=== PATIENT | female | born 1975 | race Caucasian/White ===

== ENCOUNTER 2017-05-31 16:22 | Emergency (ER) | payer BC, MEDICAID, SELFPAY ==
[~2017-05-31] VITALS: Ht 157.5 cm; Wt 61.8 kg
[~2017-05-31 16:22] MED LIST: LITH600 PO; OLAN10TA3 PO
[2017-05-31] MEDS ORDERED: OLAN10TA6 PO (17:02)
[2017-05-31] MEDS ORDERED: DIPH25 PO (17:02)
[2017-05-31 19:31] LABS: BASOPHILS % (AUTO) 0.4 % (0.0-2.0); EOSINOPHILS % (AUTO) 1.1 % (1.0-6.0); HEMATOCRIT 34.6 % (36-46); LYMPHOCYTES # (AUTO) 1.6 K/uL (1.0-4.8); LYMPHOCYTES % (AUTO) 16.6 % (22.0-44.0); MEAN CORPUSCULAR HEMOGLOBIN 30.5 pg (26.0-34.0); MEAN CORPUSCULAR HGB CONC 34.6 G/dL (31.0-37.0); MEAN CORPUSCULAR VOLUME 88 fL (80-100); MONOCYTES # (AUTO) 0.6 K/uL (0.1-1.0); MONOCYTES % (AUTO) 6.7 % (2.0-9.0); NEUTROPHILS # (AUTO) 7.3 K/uL (1.8-7.7); NEUTROPHILS % (AUTO) 75.2 % (40.0-70.0); PLATELET COUNT (AUTO) 398 K/uL (150-450); RED BLOOD CELL COUNT(AUTO) 3.93 MIL/uL (4.00-5.20); RED CELL DISTRIBUTION WIDTH 12.4 % (11.5-14.5)
[2017-05-31 19:49] LABS: LITHIUM 1.48 mmol/L (0.60-1.20)
[2017-05-31 19:51] LABS: ANION GAP 8 mmol/L (8-16); CALCIUM, TOTAL 10.1 mg/dL (8.8-10.5); CARBON DIOXIDE 25 mmol/L (22-29); CHLORIDE 104 mmol/L (98-107); CREATININE 0.86 mg/dL (0.60-1.30); GLOMERULAR FILTR. RATE CALC > 60 mL/min (>60); GLUCOSE,RANDOM 107 mg/dL (70-110); POTASSIUM 3.8 mmol/L (3.5-5.1); SODIUM SERUM 137 mmol/L (136-145); UREA NITROGEN, BLOOD 9 mg/dL (7-18)
[2017-05-31 19:55] LABS: ALANINE AMINOTRANSFERASE 34 U/L (12-78); ALBUMIN 4.2 g/dL (3.4-5.0); ALKALINE PHOSPHATASE 72 U/L (46-116); ASPARTATE AMINOTRANSFERASE 18 U/L (15-37); BILIRUBIN,TOTAL 0.3 mg/dL (0.1-1.0); TOTAL PROTEIN, SERUM 7.6 g/dL (6.4-8.2)
[2017-05-31] MEDS ORDERED: LORazepam 1 MG TABLET PO ONE (20:30)
[2017-05-31] MEDS ORDERED: DiphenhydrAMINE HCL 25 MG CAPSULE PO ONE (20:30)
[2017-05-31] MEDS ORDERED: HALOPERIDOL 5 MG TABLET PO ONE (20:30)
[2017-05-31 20:35] VITALS: BP 135/87
[2017-06-01 06:28] LABS: AMPHET/METH SCREEN,URINE NEGATIVE (NEGATIVE); BARBITURATE SCREEN, URINE NEGATIVE (NEGATIVE); BENZODIAZEPINES SCREEN,URINE NEGATIVE (NEGATIVE); CANNABINOID SCREEN,URINE NEGATIVE (NEGATIVE); COCAINE SCREEN,URINE NEGATIVE (NEGATIVE); METHADONE SCREEN, URINE NEGATIVE (NEGATIVE); OPIATE SCREEN,URINE NEGATIVE (NEGATIVE)
[2017-06-01 06:49] LABS: PHENCYCLIDINE SCREEN,URINE NEGATIVE (NEGATIVE)
[2017-06-04] MEDS ORDERED: BRIM5DRO11 OD (14:55)
[2017-06-04] MEDS ORDERED: PILO1OS OP (14:56)
[2017-06-04] MEDS ORDERED: [UNRECOGNIZED DRUG - CODE] OD (14:57)
[2017-06-04] MEDS ORDERED: OLAN10TA20 PO (14:58)
[2017-06-04] MEDS ORDERED: LITH300T4 PO (14:58)
== END 2017-05-31 20:43 | disposition home or self-care (01) ==
LOC: EMS 16:23
DX: F31.9 Bipolar disorder, unspecified (principal)
CPT/HCPCS: 36415; 80053; 80178; 80307; 84703; 85025; 99284; G0480

== ENCOUNTER 2017-06-12 11:22 | Inpatient (IN) | payer BC, MEDICAID ==
[~2017-06-12] VITALS: Ht 157.5 cm; Wt 63.5 kg
[~2017-06-12 11:22] MED LIST changes: +BRIM5DRO11 OD; +LITH300T4 PO; -LITH600 PO; +OLAN10TA20 PO; -OLAN10TA3 PO; +PILO1OS OP; +[UNRECOGNIZED DRUG - CODE] OD
[2017-06-12] MEDS ORDERED: FERR-89 PO (11:30)
[2017-06-12] MEDS ORDERED: ATOR10TA84 PO (11:30)
[2017-06-12 11:52] LABS: BASOPHILS % (AUTO) 0.4 % (0.0-2.0); EOSINOPHILS % (AUTO) 0.8 % (1.0-6.0); HEMATOCRIT 35.2 % (36-46); HEMOGLOBIN 12.4 g/dL (12.0-16.0); LYMPHOCYTES # (AUTO) 1.6 K/uL (1.0-4.8); LYMPHOCYTES % (AUTO) 18.1 % (22.0-44.0); MEAN CORPUSCULAR HEMOGLOBIN 30.8 pg (26.0-34.0); MEAN CORPUSCULAR HGB CONC 35.2 G/dL (31.0-37.0); MEAN CORPUSCULAR VOLUME 87 fL (80-100); MONOCYTES # (AUTO) 0.5 K/uL (0.1-1.0); MONOCYTES % (AUTO) 5.3 % (2.0-9.0); NEUTROPHILS # (AUTO) 6.5 K/uL (1.8-7.7); NEUTROPHILS % (AUTO) 75.4 % (40.0-70.0); PLATELET COUNT (AUTO) 356 K/uL (150-450); RED BLOOD CELL COUNT(AUTO) 4.03 MIL/uL (4.00-5.20); RED CELL DISTRIBUTION WIDTH 12.4 % (11.5-14.5)
[2017-06-12 11:57] LABS: ANION GAP 9 mmol/L (8-16); CALCIUM, TOTAL 9.3 mg/dL (8.8-10.5); CARBON DIOXIDE 24 mmol/L (22-29); CHLORIDE 103 mmol/L (98-107); CREATININE 0.68 mg/dL (0.60-1.30); GLOMERULAR FILTR. RATE CALC > 60 mL/min (>60); GLUCOSE,RANDOM 146 mg/dL (70-110); POTASSIUM 3.5 mmol/L (3.5-5.1); SODIUM SERUM 136 mmol/L (136-145); UREA NITROGEN, BLOOD 9 mg/dL (7-18)
[2017-06-12 12:03] LABS: ALANINE AMINOTRANSFERASE 66 U/L (12-78); ALKALINE PHOSPHATASE 81 U/L (46-116); ASPARTATE AMINOTRANSFERASE 35 U/L (15-37); BILIRUBIN,TOTAL 0.2 mg/dL (0.1-1.0); TOTAL PROTEIN, SERUM 7.2 g/dL (6.4-8.2)
[2017-06-12 12:31] LABS: BILIRUBIN,URINE NEGATIVE (NEGATIVE); GLUCOSE, URINE (UA) NEGATIVE (NEGATIVE); KETONES,URINE NEGATIVE (NEGATIVE); LEUKOCYTE ESTERASE ,URINE MODERATE (NEGATIVE); NITRATE,URINE NEGATIVE (NEGATIVE); OCCULT BLOOD,URINE NEGATIVE (NEGATIVE); PROTEIN,URINE NEGATIVE (NEGATIVE); UROBILINOGEN,URINE 0.2 mg/dL (<=1.0)
[2017-06-12 12:37] LABS: APPEARANCE,URINE HAZY (CLEAR); BACTERIA,URINE None Seen /HPF (None Seen); RBC,URINE 0-2 /HPF (0-2); SQUAMOUS EPITHELIAL CELL,UR Few /LPF (None Seen)
[2017-06-12] MEDS ORDERED: OLANZapine 5 MG TABLET PO ONE (13:15)
[2017-06-12] MEDS ORDERED: LORazepam 1 MG TABLET PO ONE (13:15)
[2017-06-12 14:05] LABS: AMPHET/METH SCREEN,URINE NEGATIVE (NEGATIVE); BARBITURATE SCREEN, URINE NEGATIVE (NEGATIVE); BENZODIAZEPINES SCREEN,URINE NEGATIVE (NEGATIVE); CANNABINOID SCREEN,URINE NEGATIVE (NEGATIVE); COCAINE SCREEN,URINE NEGATIVE (NEGATIVE); METHADONE SCREEN, URINE NEGATIVE (NEGATIVE); OPIATE SCREEN,URINE NEGATIVE (NEGATIVE)
[2017-06-12 14:06] LABS: PHENCYCLIDINE SCREEN,URINE NEGATIVE (NEGATIVE)
[2017-06-12] MEDS: LITHIUM CARBONATE 300 MG CAPSULE PO SCH (16:34)
[2017-06-12 16:54] VITALS: BP 128/79
[2017-06-12] MEDS: OLANZapine 10 MG TABLET PO SCH (20:17)
[2017-06-12] MEDS: ZOLPIDEM TARTRATE 10 MG TABLET PO PRN (20:30)
[2017-06-13 03:34] VITALS: BP 105/65
[2017-06-13] MEDS: FERROUS SULFATE 325 MG EC TABLET PO SCH ×2 (06:36→17:13)
[2017-06-13 08:00] VITALS: BP 158/94
[2017-06-13] MEDS: ATORVASTATIN CALCIUM 10 MG TABLET PO SCH (08:41)
[2017-06-13] MEDS: LITHIUM CARBONATE 300 MG CAPSULE PO SCH ×2 (08:41→17:14)
[2017-06-13] MEDS: PrednisoLONE ACETATE 1% 5 ML OPHTHALMIC SUSPENSION OD SCH ×2 (08:57→17:15)
[2017-06-13] MEDS: PILOCARPINE HCL 1% 15 ML OPHTHALMIC SOLUTION OD SCH ×2 (08:57→17:38)
[2017-06-13] MEDS: BRIMONIDINE TARTRATE 0.2% 5 ML OPHTHALMIC SOLUTION OD SCH ×3 (08:57→17:22)
[2017-06-13] MEDS: HALOPERIDOL 5 MG TABLET PO PRN (12:29)
[2017-06-13] MEDS: LORazepam 2 MG TABLET PO PRN ×2 (12:29→22:10)
[2017-06-13] MEDS ORDERED: ACETAMINOPHEN 325 MG TABLET PO PRN (16:00)
[2017-06-13] MEDS ORDERED: IBUPROFEN 400 MG TABLET PO PRN (16:00)
[2017-06-13 17:00] VITALS: BP 110/92
[2017-06-13] MEDS: OLANZapine 10 MG TABLET PO SCH (20:39)
[2017-06-13] MEDS: ZOLPIDEM TARTRATE 10 MG TABLET PO PRN (22:10)
[2017-06-14 01:27] VITALS: BP 105/72
[2017-06-14] MEDS: FERROUS SULFATE 325 MG EC TABLET PO SCH ×2 (07:03→19:10)
[2017-06-14 08:00] VITALS: BP 120/90
[2017-06-14] MEDS: PILOCARPINE HCL 1% 15 ML OPHTHALMIC SOLUTION OD SCH ×2 (09:24→16:13)
[2017-06-14] MEDS: BRIMONIDINE TARTRATE 0.2% 5 ML OPHTHALMIC SOLUTION OD SCH ×3 (09:24→16:14)
[2017-06-14] MEDS: PrednisoLONE ACETATE 1% 5 ML OPHTHALMIC SUSPENSION OD SCH ×2 (09:24→16:13)
[2017-06-14] MEDS: LITHIUM CARBONATE 300 MG CAPSULE PO SCH ×2 (09:25→16:15)
[2017-06-14] MEDS: ATORVASTATIN CALCIUM 10 MG TABLET PO SCH (09:25)
[2017-06-14] MEDS: LORazepam 2 MG TABLET PO PRN ×2 (13:16→20:16)
[2017-06-14] MEDS: HALOPERIDOL 5 MG TABLET PO PRN (16:15)
[2017-06-14] MEDS: OLANZapine 10 MG TABLET PO SCH (20:15)
[2017-06-14 20:16] VITALS: BP 127/79
[2017-06-14] MEDS: ZOLPIDEM TARTRATE 10 MG TABLET PO PRN (22:05)
[2017-06-15 01:30] VITALS: BP 122/84
[2017-06-15] MEDS: FERROUS SULFATE 325 MG EC TABLET PO SCH ×2 (06:35→16:35)
[2017-06-15] MEDS: LITHIUM CARBONATE 300 MG CAPSULE PO SCH ×2 (08:45→16:35)
[2017-06-15] MEDS: PILOCARPINE HCL 1% 15 ML OPHTHALMIC SOLUTION OD SCH ×2 (08:47→16:36)
[2017-06-15] MEDS: PrednisoLONE ACETATE 1% 5 ML OPHTHALMIC SUSPENSION OD SCH ×2 (08:48→17:14)
[2017-06-15] MEDS: BRIMONIDINE TARTRATE 0.2% 5 ML OPHTHALMIC SOLUTION OD SCH ×3 (08:48→17:06)
[2017-06-15] MEDS: ATORVASTATIN CALCIUM 10 MG TABLET PO SCH (08:49)
[2017-06-15 09:58] VITALS: BP 139/89
[2017-06-15] MEDS: LORazepam 2 MG TABLET PO PRN (13:28)
[2017-06-15] MEDS: HALOPERIDOL 5 MG TABLET PO PRN (16:39)
[2017-06-15 17:07] VITALS: BP 133/84
[2017-06-15] MEDS: OLANZapine 10 MG TABLET PO SCH (20:56)
[2017-06-16 05:16] VITALS: BP 133/94
[2017-06-16] MEDS: FERROUS SULFATE 325 MG EC TABLET PO SCH ×2 (06:57→18:18)
[2017-06-16 08:00] VITALS: BP 125/87
[2017-06-16] MEDS: ATORVASTATIN CALCIUM 10 MG TABLET PO SCH (08:18)
[2017-06-16] MEDS: LITHIUM CARBONATE 300 MG CAPSULE PO SCH ×2 (08:18→17:14)
[2017-06-16] MEDS: LORazepam 2 MG TABLET PO PRN ×2 (08:20→17:16)
[2017-06-16] MEDS: BRIMONIDINE TARTRATE 0.2% 5 ML OPHTHALMIC SOLUTION OD SCH ×3 (08:21→17:18)
[2017-06-16] MEDS: PrednisoLONE ACETATE 1% 5 ML OPHTHALMIC SUSPENSION OD SCH ×2 (08:21→17:19)
[2017-06-16] MEDS: PILOCARPINE HCL 1% 15 ML OPHTHALMIC SOLUTION OD SCH ×2 (08:21→17:17)
[2017-06-16 16:00] VITALS: BP 131/93
[2017-06-16] MEDS: HALOPERIDOL 5 MG TABLET PO PRN (17:16)
[2017-06-16] MEDS: OLANZapine 10 MG TABLET PO SCH (20:15)
[2017-06-17 01:03] VITALS: BP 112/68
[2017-06-17] MEDS: FERROUS SULFATE 325 MG EC TABLET PO SCH ×2 (07:06→16:54)
[2017-06-17 08:11] VITALS: BP 123/86
[2017-06-17] MEDS: PrednisoLONE ACETATE 1% 5 ML OPHTHALMIC SUSPENSION OD SCH ×2 (09:00→16:54)
[2017-06-17] MEDS: PILOCARPINE HCL 1% 15 ML OPHTHALMIC SOLUTION OD SCH ×2 (09:00→16:54)
[2017-06-17] MEDS: BRIMONIDINE TARTRATE 0.2% 5 ML OPHTHALMIC SOLUTION OD SCH ×3 (09:00→16:54)
[2017-06-17] MEDS: LITHIUM CARBONATE 300 MG CAPSULE PO SCH ×2 (09:16→16:54)
[2017-06-17] MEDS: ATORVASTATIN CALCIUM 10 MG TABLET PO SCH (09:19)
[2017-06-17] MEDS: LORazepam 2 MG TABLET PO PRN (09:19)
[2017-06-17 16:07] VITALS: BP 144/75
[2017-06-17] MEDS: ZOLPIDEM TARTRATE 10 MG TABLET PO PRN (20:17)
[2017-06-17] MEDS: OLANZapine 10 MG TABLET PO SCH (20:18)
[2017-06-18 05:37] VITALS: BP 120/70
[2017-06-18] MEDS: FERROUS SULFATE 325 MG EC TABLET PO SCH ×2 (06:34→16:06)
[2017-06-18] MEDS: ATORVASTATIN CALCIUM 10 MG TABLET PO SCH (08:08)
[2017-06-18] MEDS: LITHIUM CARBONATE 300 MG CAPSULE PO SCH ×2 (08:08→17:02)
[2017-06-18] MEDS: PrednisoLONE ACETATE 1% 5 ML OPHTHALMIC SUSPENSION OD SCH ×2 (08:08→16:09)
[2017-06-18] MEDS: PILOCARPINE HCL 1% 15 ML OPHTHALMIC SOLUTION OD SCH ×2 (08:09→16:09)
[2017-06-18] MEDS: BRIMONIDINE TARTRATE 0.2% 5 ML OPHTHALMIC SOLUTION OD SCH ×3 (08:09→16:09)
[2017-06-18] MEDS: HALOPERIDOL 5 MG TABLET PO PRN ×2 (08:10→17:02)
[2017-06-18 08:15] VITALS: BP 139/71
[2017-06-18] MEDS: LORazepam 2 MG TABLET PO PRN ×2 (08:32→16:06)
[2017-06-18 16:30] VITALS: BP 123/78
[2017-06-18] MEDS: OLANZapine 10 MG TABLET PO SCH (20:16)
[2017-06-19 01:45] VITALS: BP 117/85
[2017-06-19] MEDS: FERROUS SULFATE 325 MG EC TABLET PO SCH ×2 (06:35→17:28)
[2017-06-19] MEDS: BRIMONIDINE TARTRATE 0.2% 5 ML OPHTHALMIC SOLUTION OD SCH ×3 (08:08→17:27)
[2017-06-19] MEDS: PrednisoLONE ACETATE 1% 5 ML OPHTHALMIC SUSPENSION OD SCH ×2 (08:08→17:27)
[2017-06-19] MEDS: ATORVASTATIN CALCIUM 10 MG TABLET PO SCH (08:09)
[2017-06-19] MEDS: PILOCARPINE HCL 1% 15 ML OPHTHALMIC SOLUTION OD SCH ×2 (08:09→17:27)
[2017-06-19] MEDS: LITHIUM CARBONATE 300 MG CAPSULE PO SCH ×2 (08:09→17:28)
[2017-06-19] MEDS: HALOPERIDOL 5 MG TABLET PO PRN ×2 (08:09→17:28)
[2017-06-19 08:18] VITALS: BP 143/81
[2017-06-19] MEDS: LORazepam 2 MG TABLET PO PRN ×2 (12:46→21:07)
[2017-06-19 16:28] VITALS: BP 126/72
[2017-06-19] MEDS: OLANZapine 10 MG TABLET PO SCH (21:07)
[2017-06-19] MEDS: ZOLPIDEM TARTRATE 10 MG TABLET PO PRN (21:07)
[2017-06-20 05:12] VITALS: BP 121/86
[2017-06-20] MEDS: FERROUS SULFATE 325 MG EC TABLET PO SCH (06:25)
[2017-06-20] MEDS: BRIMONIDINE TARTRATE 0.2% 5 ML OPHTHALMIC SOLUTION OD SCH ×2 (08:13→12:29)
[2017-06-20] MEDS: PrednisoLONE ACETATE 1% 5 ML OPHTHALMIC SUSPENSION OD SCH (08:13)
[2017-06-20] MEDS: PILOCARPINE HCL 1% 15 ML OPHTHALMIC SOLUTION OD SCH (08:13)
[2017-06-20] MEDS: LITHIUM CARBONATE 300 MG CAPSULE PO SCH (08:13)
[2017-06-20] MEDS: ATORVASTATIN CALCIUM 10 MG TABLET PO SCH (08:14)
[2017-06-20] MEDS: HALOPERIDOL 5 MG TABLET PO PRN (08:16)
[2017-06-20 08:21] VITALS: BP 122/71
[2017-06-20] MEDS ORDERED: LITH300C3 PO (09:42)
[2017-06-20] MEDS: LORazepam 2 MG TABLET PO PRN (10:01)
== END 2017-06-20 16:06 | disposition home or self-care (01) | DRG 885 ==
LOC: EMS 11:26 → 3EI 14:40 → B3A 06-17 00:23
PROVIDERS: ADMIT Psychiatry & Neurology Child & Adolescent Psychiatry; ATTEND Psychiatry & Neurology Child & Adolescent Psychiatry
DX: F20.0 Paranoid schizophrenia (principal); D64.9 Anemia, unspecified; E78.5 Hyperlipidemia, unspecified; G47.00 Insomnia, unspecified; I10 Essential (primary) hypertension; M54.5 Low back pain; R73.9 Hyperglycemia, unspecified; Z79.899 Other long term (current) drug therapy
CPT/HCPCS: 83036; 87081; 99285; G0480

== ENCOUNTER 2017-06-24 23:34 | Inpatient (IN) | payer BC, MEDICAID ==
[~2017-06-24] VITALS: Ht 157.5 cm; Wt 62.6 kg
[~2017-06-24 23:34] MED LIST changes: +ATOR10TA84 PO; +FERR-89 PO; +LITH300C3 PO; -LITH300T4 PO
[2017-06-25 01:06] LABS: BASOPHILS % (AUTO) 0.3 % (0.0-2.0); EOSINOPHILS % (AUTO) 1.5 % (1.0-6.0); HEMOGLOBIN 12.8 g/dL (12.0-16.0); LYMPHOCYTES # (AUTO) 2.5 K/uL (1.0-4.8); LYMPHOCYTES % (AUTO) 21.5 % (22.0-44.0); MEAN CORPUSCULAR HEMOGLOBIN 30.2 pg (26.0-34.0); MEAN CORPUSCULAR HGB CONC 34.8 G/dL (31.0-37.0); MEAN CORPUSCULAR VOLUME 87 fL (80-100); MONOCYTES # (AUTO) 0.9 K/uL (0.1-1.0); MONOCYTES % (AUTO) 7.8 % (2.0-9.0); NEUTROPHILS % (AUTO) 68.9 % (40.0-70.0); PLATELET COUNT (AUTO) 407 K/uL (150-450); RED BLOOD CELL COUNT(AUTO) 4.25 MIL/uL (4.00-5.20); RED CELL DISTRIBUTION WIDTH 12.4 % (11.5-14.5)
[2017-06-25 01:24] LABS: LITHIUM 0.93 mmol/L (0.60-1.20)
[2017-06-25 01:44] LABS: AMPHET/METH SCREEN,URINE NEGATIVE (NEGATIVE); BARBITURATE SCREEN, URINE NEGATIVE (NEGATIVE); BENZODIAZEPINES SCREEN,URINE NEGATIVE (NEGATIVE); CANNABINOID SCREEN,URINE NEGATIVE (NEGATIVE); COCAINE SCREEN,URINE NEGATIVE (NEGATIVE); METHADONE SCREEN, URINE NEGATIVE (NEGATIVE); OPIATE SCREEN,URINE NEGATIVE (NEGATIVE)
[2017-06-25 02:03] LABS: PHENCYCLIDINE SCREEN,URINE NEGATIVE (NEGATIVE)
[2017-06-25 02:12] LABS: ANION GAP 6 mmol/L (8-16); CALCIUM, TOTAL 9.7 mg/dL (8.8-10.5); CARBON DIOXIDE 28 mmol/L (22-29); CHLORIDE 104 mmol/L (98-107); CREATININE 0.71 mg/dL (0.60-1.30); GLOMERULAR FILTR. RATE CALC > 60 mL/min (>60); GLUCOSE,RANDOM 116 mg/dL (70-110); POTASSIUM 4.1 mmol/L (3.5-5.1); SODIUM SERUM 138 mmol/L (136-145); UREA NITROGEN, BLOOD 9 mg/dL (7-18)
[2017-06-25 02:18] LABS: ALANINE AMINOTRANSFERASE 45 U/L (12-78); ALBUMIN 3.9 g/dL (3.4-5.0); ALKALINE PHOSPHATASE 94 U/L (46-116); ASPARTATE AMINOTRANSFERASE 23 U/L (15-37); BILIRUBIN,TOTAL 0.1 mg/dL (0.1-1.0); TOTAL PROTEIN, SERUM 7.5 g/dL (6.4-8.2)
[2017-06-25] MEDS ORDERED: HALOPERIDOL 5 MG TABLET PO ONE (03:30)
[2017-06-25] MEDS ORDERED: DiphenhydrAMINE HCL 25 MG/10 ML ELIXIR UDCUP PO ONE (03:30)
[2017-06-25] MEDS ORDERED: LORazepam 1 MG TABLET PO ONE (03:30)
[2017-06-25] MEDS: HALOPERIDOL 5 MG TABLET PO PRN (09:55)
[2017-06-25] MEDS: LORazepam 2 MG TABLET PO PRN ×2 (09:55→21:48)
[2017-06-25 16:20] VITALS: BP 124/83
[2017-06-25] MEDS ORDERED: LITH600 PO (16:54)
[2017-06-25] MEDS ORDERED: BRIM15DR8 OD (16:56)
[2017-06-25] MEDS ORDERED: BRIMONIDINE TARTRATE 0.15% 5 ML OPHTHALMIC SOLUTION OD SCH (17:00)
[2017-06-25] MEDS: FERROUS SULFATE 325 MG EC TABLET PO SCH (17:40)
[2017-06-25] MEDS: GuaiFENesin/D-METHORPHAN [SUGAR-FREE] 200-20MG/10 ML SYRUP UDCUP PO PRN (18:29)
[2017-06-25] MEDS: PILOCARPINE HCL 1% 15 ML OPHTHALMIC SOLUTION OD SCH (21:48)
[2017-06-25] MEDS: BRIMONIDINE TARTRATE 0.2% 5 ML OPHTHALMIC SOLUTION OD SCH ×2 (21:54→21:59)
[2017-06-25] MEDS: PrednisoLONE ACETATE 1% 5 ML OPHTHALMIC SUSPENSION OD SCH (22:05)
[2017-06-26 01:05] VITALS: BP 118/69
[2017-06-26] MEDS: ZOLPIDEM TARTRATE 10 MG TABLET PO PRN ×2 (01:06→21:22)
[2017-06-26] MEDS: FERROUS SULFATE 325 MG EC TABLET PO SCH ×2 (06:34→16:48)
[2017-06-26 08:12] VITALS: BP 134/80
[2017-06-26] MEDS: PILOCARPINE HCL 1% 15 ML OPHTHALMIC SOLUTION OD SCH ×2 (08:43→16:48)
[2017-06-26] MEDS: BRIMONIDINE TARTRATE 0.2% 5 ML OPHTHALMIC SOLUTION OD SCH ×3 (08:43→16:48)
[2017-06-26] MEDS: LORazepam 2 MG TABLET PO PRN ×2 (08:43→16:49)
[2017-06-26] MEDS: HALOPERIDOL 5 MG TABLET PO PRN ×2 (08:44→16:49)
[2017-06-26] MEDS: PrednisoLONE ACETATE 1% 5 ML OPHTHALMIC SUSPENSION OD SCH (08:46)
[2017-06-26] MEDS: GuaiFENesin/D-METHORPHAN [SUGAR-FREE] 200-20MG/10 ML SYRUP UDCUP PO PRN (09:31)
[2017-06-26] MEDS: LITHIUM CARBONATE 600 MG CAPSULE PO SCH ×2 (09:31→16:48)
[2017-06-26] MEDS ORDERED: ACETAMINOPHEN 325 MG TABLET PO PRN (14:00)
[2017-06-26] MEDS ORDERED: IBUPROFEN 400 MG TABLET PO PRN (14:00)
[2017-06-26 16:24] VITALS: BP 116/78
[2017-06-26] MEDS ORDERED: FERROUS SULFATE 325 MG EC TABLET PO SCH (17:00)
[2017-06-26] MEDS ORDERED: PILOCARPINE HCL 1% 15 ML OPHTHALMIC SOLUTION OU SCH (17:00)
[2017-06-26] MEDS: HALOPERIDOL 10 MG TABLET PO SCH (21:22)
[2017-06-27 04:09] VITALS: BP 125/86
[2017-06-27] MEDS: FERROUS SULFATE 325 MG EC TABLET PO SCH ×2 (06:04→16:19)
[2017-06-27 07:52] LABS: BASOPHILS % (AUTO) 0.4 % (0.0-2.0); EOSINOPHILS % (AUTO) 0.8 % (1.0-6.0); HEMATOCRIT 37.5 % (36-46); HEMOGLOBIN 12.9 g/dL (12.0-16.0); LYMPHOCYTES # (AUTO) 2.2 K/uL (1.0-4.8); LYMPHOCYTES % (AUTO) 18.3 % (22.0-44.0); MEAN CORPUSCULAR HEMOGLOBIN 30.2 pg (26.0-34.0); MEAN CORPUSCULAR HGB CONC 34.4 G/dL (31.0-37.0); MEAN CORPUSCULAR VOLUME 88 fL (80-100); MONOCYTES # (AUTO) 0.8 K/uL (0.1-1.0); MONOCYTES % (AUTO) 6.4 % (2.0-9.0); NEUTROPHILS # (AUTO) 8.9 K/uL (1.8-7.7); NEUTROPHILS % (AUTO) 74.1 % (40.0-70.0); PLATELET COUNT (AUTO) 420 K/uL (150-450); RED BLOOD CELL COUNT(AUTO) 4.27 MIL/uL (4.00-5.20); RED CELL DISTRIBUTION WIDTH 12.5 % (11.5-14.5)
[2017-06-27] MEDS: BRIMONIDINE TARTRATE 0.2% 5 ML OPHTHALMIC SOLUTION OD SCH ×3 (08:30→16:19)
[2017-06-27] MEDS: PrednisoLONE ACETATE 1% 5 ML OPHTHALMIC SUSPENSION OD SCH ×2 (08:30→16:19)
[2017-06-27] MEDS: LITHIUM CARBONATE 600 MG CAPSULE PO SCH ×2 (08:31→16:19)
[2017-06-27] MEDS: PILOCARPINE HCL 1% 15 ML OPHTHALMIC SOLUTION OD SCH ×2 (08:31→16:19)
[2017-06-27 08:32] VITALS: BP_SYST 116
[2017-06-27] MEDS: LORazepam 2 MG TABLET PO PRN ×2 (08:32→17:18)
[2017-06-27] MEDS: ATORVASTATIN CALCIUM 20 MG TABLET PO SCH (10:18)
[2017-06-27 16:12] VITALS: BP 115/69
[2017-06-27] MEDS: HALOPERIDOL 10 MG TABLET PO SCH (21:00)
[2017-06-27] MEDS: DIVALPROEX SODIUM 500 MG DR TABLET PO SCH (21:00)
[2017-06-28 01:49] VITALS: BP 121/70
[2017-06-28] MEDS: FERROUS SULFATE 325 MG EC TABLET PO SCH ×2 (06:09→16:32)
[2017-06-28] MEDS: BRIMONIDINE TARTRATE 0.2% 5 ML OPHTHALMIC SOLUTION OD SCH ×3 (08:22→16:32)
[2017-06-28] MEDS: LITHIUM CARBONATE 600 MG CAPSULE PO SCH ×2 (08:23→16:32)
[2017-06-28] MEDS: PrednisoLONE ACETATE 1% 5 ML OPHTHALMIC SUSPENSION OD SCH ×2 (08:23→16:32)
[2017-06-28] MEDS: ATORVASTATIN CALCIUM 20 MG TABLET PO SCH (08:23)
[2017-06-28] MEDS: PILOCARPINE HCL 1% 15 ML OPHTHALMIC SOLUTION OD SCH ×2 (08:23→16:32)
[2017-06-28 08:50] VITALS: BP 138/88
[2017-06-28 16:21] VITALS: BP 110/77
[2017-06-28] MEDS: HALOPERIDOL 10 MG TABLET PO SCH (20:21)
[2017-06-28] MEDS: DIVALPROEX SODIUM 500 MG DR TABLET PO SCH (20:22)
[2017-06-28] MEDS: ZOLPIDEM TARTRATE 10 MG TABLET PO PRN (23:31)
[2017-06-29 04:44] VITALS: BP 108/75
[2017-06-29] MEDS: FERROUS SULFATE 325 MG EC TABLET PO SCH ×2 (06:06→16:13)
[2017-06-29] MEDS: PILOCARPINE HCL 1% 15 ML OPHTHALMIC SOLUTION OD SCH ×2 (08:10→16:14)
[2017-06-29] MEDS: ATORVASTATIN CALCIUM 20 MG TABLET PO SCH (08:10)
[2017-06-29] MEDS: BRIMONIDINE TARTRATE 0.2% 5 ML OPHTHALMIC SOLUTION OD SCH ×3 (08:10→16:14)
[2017-06-29] MEDS: PrednisoLONE ACETATE 1% 5 ML OPHTHALMIC SUSPENSION OD SCH ×2 (08:10→16:14)
[2017-06-29] MEDS: LITHIUM CARBONATE 600 MG CAPSULE PO SCH ×2 (08:10→16:13)
[2017-06-29 08:39] VITALS: BP 126/69
[2017-06-29 16:12] VITALS: BP 129/69
[2017-06-29] MEDS: HALOPERIDOL 10 MG TABLET PO SCH (20:24)
[2017-06-29] MEDS: DIVALPROEX SODIUM 500 MG DR TABLET PO SCH (20:24)
[2017-06-30 05:38] VITALS: BP 127/88
[2017-06-30] MEDS: FERROUS SULFATE 325 MG EC TABLET PO SCH ×2 (06:08→16:44)
[2017-06-30] MEDS: GuaiFENesin/D-METHORPHAN [SUGAR-FREE] 200-20MG/10 ML SYRUP UDCUP PO PRN (07:02)
[2017-06-30] MEDS: HALOPERIDOL 5 MG TABLET PO PRN (08:12)
[2017-06-30] MEDS: PILOCARPINE HCL 1% 15 ML OPHTHALMIC SOLUTION OD SCH ×2 (08:12→16:44)
[2017-06-30] MEDS: PrednisoLONE ACETATE 1% 5 ML OPHTHALMIC SUSPENSION OD SCH ×2 (08:12→16:44)
[2017-06-30] MEDS: BRIMONIDINE TARTRATE 0.2% 5 ML OPHTHALMIC SOLUTION OD SCH ×3 (08:12→16:44)
[2017-06-30] MEDS: ATORVASTATIN CALCIUM 20 MG TABLET PO SCH (08:12)
[2017-06-30] MEDS: LITHIUM CARBONATE 600 MG CAPSULE PO SCH ×2 (08:12→17:24)
[2017-06-30] MEDS: LORazepam 2 MG TABLET PO PRN ×2 (08:12→17:28)
[2017-06-30 08:40] VITALS: BP 116/70
[2017-06-30 16:29] VITALS: BP 119/69
[2017-06-30] MEDS: DIVALPROEX SODIUM 500 MG DR TABLET PO SCH (20:43)
[2017-06-30] MEDS: HALOPERIDOL 10 MG TABLET PO SCH (20:43)
[2017-07-01 05:09] VITALS: BP 116/72
[2017-07-01] MEDS: FERROUS SULFATE 325 MG EC TABLET PO SCH ×2 (06:26→17:52)
[2017-07-01] MEDS: LITHIUM CARBONATE 600 MG CAPSULE PO SCH ×2 (08:14→17:52)
[2017-07-01] MEDS: BRIMONIDINE TARTRATE 0.2% 5 ML OPHTHALMIC SOLUTION OD SCH ×2 (08:14→13:13)
[2017-07-01] MEDS: LORazepam 2 MG TABLET PO PRN (08:14)
[2017-07-01] MEDS: PILOCARPINE HCL 1% 15 ML OPHTHALMIC SOLUTION OD SCH (08:14)
[2017-07-01] MEDS: ATORVASTATIN CALCIUM 20 MG TABLET PO SCH (08:14)
[2017-07-01] MEDS: PrednisoLONE ACETATE 1% 5 ML OPHTHALMIC SUSPENSION OD SCH (08:14)
[2017-07-01 08:37] VITALS: BP 112/88
[2017-07-01 08:55] LABS: BASOPHILS % (AUTO) 0.3 % (0.0-2.0); EOSINOPHILS % (AUTO) 1.2 % (1.0-6.0); HEMATOCRIT 36.6 % (36-46); HEMOGLOBIN 12.6 g/dL (12.0-16.0); LYMPHOCYTES # (AUTO) 1.5 K/uL (1.0-4.8); LYMPHOCYTES % (AUTO) 16.9 % (22.0-44.0); MEAN CORPUSCULAR HEMOGLOBIN 30.1 pg (26.0-34.0); MEAN CORPUSCULAR HGB CONC 34.4 G/dL (31.0-37.0); MEAN CORPUSCULAR VOLUME 87 fL (80-100); MONOCYTES # (AUTO) 0.6 K/uL (0.1-1.0); MONOCYTES % (AUTO) 6.6 % (2.0-9.0); NEUTROPHILS # (AUTO) 6.9 K/uL (1.8-7.7); PLATELET COUNT (AUTO) 347 K/uL (150-450); RED CELL DISTRIBUTION WIDTH 12.4 % (11.5-14.5)
[2017-07-01] MEDS ORDERED: FERR-89 PO (12:40)
[2017-07-01] MEDS ORDERED: HALO10 PO (12:40)
[2017-07-01] MEDS ORDERED: DIVA500T35 PO (12:40)
[2017-07-01] MEDS ORDERED: ATOR20TA86 PO (12:40)
== END 2017-07-01 18:30 | disposition home or self-care (01) | DRG 885 ==
LOC: EMS 23:36 → B3A 06-25 14:35
PROVIDERS: ADMIT Psychiatry & Neurology Child & Adolescent Psychiatry; ATTEND Psychiatry & Neurology Child & Adolescent Psychiatry
DX: F31.5 Bipolar disorder, current episode depressed, severe, with psychotic features (principal); Z91.14 Patient's other noncompliance with medication regimen; F20.9 Schizophrenia, unspecified; E78.5 Hyperlipidemia, unspecified; D72.829 Elevated white blood cell count, unspecified; D64.9 Anemia, unspecified; M54.5 Low back pain; I10 Essential (primary) hypertension; H40.9 Unspecified glaucoma; G47.00 Insomnia, unspecified; Z79.899 Other long term (current) drug therapy
CPT/HCPCS: 87081; 99285; G0480

== ENCOUNTER 2019-05-02 12:56 | Inpatient (IN) | payer BC, MEDICAID ==
[~2019-05-02] VITALS: Ht 162.6 cm; Wt 65.4 kg
[~2019-05-02 12:56] MED LIST changes: -ATOR10TA84 PO; +ATOR20TA86 PO; -BRIM5DRO11 OD; +DIVA-78 PO; +HALO10 PO; -LITH300C3 PO; +LITH600 PO; -OLAN10TA20 PO; -PILO1OS OP; -[UNRECOGNIZED DRUG - CODE] OD
[2019-05-06 10:29] VITALS: BP 150/95
[2019-05-06] MEDS ORDERED: HALOPERIDOL 5 MG TABLET PO PRN (10:45)
[2019-05-06] MEDS ORDERED: PNEUMOCOCCAL VACCINE POLYVALENT 0.5 ML VIAL [PPSV23] IM ONE (14:00)
[2019-05-06] MEDS ORDERED: INFLUENZA VIRUS VACCINE QVS 2019-20 (3YR+)/PF 60 MCG/0.5 ML SYRINGE IM ONE (14:00)
[2019-05-06] MEDS ORDERED: LOPERAMIDE HCL 2 MG CAPSULE PO PRN (17:15)
[2019-05-06] MEDS ORDERED: MAG HYDROX/AL HYDROX/SIMETH ES 30 ML SUSPENSION UDCUP PO PRN (17:15)
[2019-05-06] MEDS ORDERED: NICOTINE 14 MG/24 HOUR PATCH TD PRN (17:15)
[2019-05-06] MEDS ORDERED: ACETAMINOPHEN 325 MG TABLET PO PRN (17:15)
[2019-05-06] MEDS ORDERED: GuaiFENesin/D-METHORPHAN [SUGAR-FREE] 200-20MG/10 ML SYRUP UDCUP PO PRN (17:15)
[2019-05-06] MEDS ORDERED: PETROLATUM,WHITE 28 GM JELLY TP PRN (17:15)
[2019-05-06] MEDS ORDERED: ONDANSETRON HCL 4 MG TABLET PO PRN (17:15)
[2019-05-06] MEDS ORDERED: CloNIDine HCL 0.1 MG TABLET PO PRN (17:15)
[2019-05-06] MEDS ORDERED: MAGNESIUM HYDROXIDE SUSPENSION 30 ML UDCUP PO PRN (17:15)
[2019-05-06] MEDS ORDERED: IBUPROFEN 400 MG TABLET PO PRN (17:15)
[2019-05-06] MEDS ORDERED: ALBUTEROL SULFATE HFA 90 MCG/PUFF 8 GM INHALER IH PRN (17:15)
[2019-05-06 17:53] VITALS: BP 101/67
[2019-05-06] MEDS: ZOLPIDEM TARTRATE 10 MG TABLET PO PRN (20:31)
[2019-05-06] MEDS: LORazepam 2 MG TABLET PO PRN (21:31)
[2019-05-07 01:26] VITALS: BP 104/62
[2019-05-07] MEDS: FERROUS SULFATE 325 MG EC TABLET PO SCH ×2 (06:51→16:25)
[2019-05-07 08:14] LABS: BASOPHILS % (AUTO) 0.4 % (0.0-2.0); EOSINOPHILS % (AUTO) 0.6 % (1.0-6.0); HEMOGLOBIN 12.6 g/dL (12.0-16.0); LYMPHOCYTES # (AUTO) 2.7 K/uL (1.0-4.8); LYMPHOCYTES % (AUTO) 32.5 % (22.0-44.0); MEAN CORPUSCULAR HEMOGLOBIN 28.4 pg (26.0-34.0); MEAN CORPUSCULAR HGB CONC 33.2 G/dL (31.0-37.0); MEAN CORPUSCULAR VOLUME 86 fL (80-100); MONOCYTES # (AUTO) 0.5 K/uL (0.1-1.0); MONOCYTES % (AUTO) 6.5 % (2.0-9.0); PLATELET COUNT (AUTO) 317 K/uL (150-450); RED BLOOD CELL COUNT(AUTO) 4.44 MIL/uL (4.00-5.20); RED CELL DISTRIBUTION WIDTH 13.2 % (11.5-14.5)
[2019-05-07 08:24] LABS: HEMOGLOBIN A1C 5.8 % (3.8-5.6)
[2019-05-07 08:30] VITALS: BP 115/69
[2019-05-07 08:32] LABS: AMPHET/METH SCREEN,URINE NEGATIVE (NEGATIVE); BARBITURATE SCREEN, URINE NEGATIVE (NEGATIVE); BENZODIAZEPINES SCREEN,URINE NEGATIVE (NEGATIVE); CANNABINOID SCREEN,URINE NEGATIVE (NEGATIVE); COCAINE SCREEN,URINE NEGATIVE (NEGATIVE); METHADONE SCREEN, URINE NEGATIVE (NEGATIVE); OPIATE SCREEN,URINE NEGATIVE (NEGATIVE)
[2019-05-07 08:37] LABS: PHENCYCLIDINE SCREEN,URINE NEGATIVE (NEGATIVE)
[2019-05-07 08:42] LABS: APPEARANCE,URINE CLOUDY (CLEAR); BILIRUBIN,URINE NEGATIVE (NEGATIVE); GLUCOSE, URINE (UA) NEGATIVE (NEGATIVE); KETONES,URINE NEGATIVE (NEGATIVE); LEUKOCYTE ESTERASE ,URINE LARGE (NEGATIVE); NITRATE,URINE NEGATIVE (NEGATIVE); OCCULT BLOOD,URINE NEGATIVE (NEGATIVE); PROTEIN,URINE NEGATIVE (NEGATIVE); UROBILINOGEN,URINE 0.2 mg/dL (<=1.0)
[2019-05-07 08:47] LABS: BACTERIA,URINE Moderate /HPF (None Seen); RBC,URINE None Seen /HPF (0-2); SQUAMOUS EPITHELIAL CELL,UR Moderate /LPF (None Seen)
[2019-05-07 08:54] LABS: ALANINE AMINOTRANSFERASE 41 U/L (12-78); ALBUMIN 3.5 g/dL (3.4-5.0); ALKALINE PHOSPHATASE 85 U/L (46-116); ANION GAP 8 mmol/L (8-16); ASPARTATE AMINOTRANSFERASE 18 U/L (15-37); BILIRUBIN,TOTAL 0.2 mg/dL (0.1-1.0); CALCIUM, TOTAL 9.1 mg/dL (8.8-10.5); CARBON DIOXIDE 27 mmol/L (22-29); CHLORIDE 106 mmol/L (98-107); CHOL/HDL RATIO 5.1 (3.9-5.7); CHOLESTEROL 168 mg/dL (131-200); CREATININE 0.68 mg/dL (0.60-1.30); GLOMERULAR FILTR. RATE CALC > 60 mL/min (>60); GLUCOSE,RANDOM 100 mg/dL (70-110); HDL CHOLESTEROL 33 mg/dL (40-60); LDL CHOL (CALC.) 115 mg/dL (0-130); POTASSIUM 4.6 mmol/L (3.5-5.1); SODIUM SERUM 141 mmol/L (136-145); THYROID STIMULATING HORMONE 0.48 uIU/mL (0.36-3.74); TOTAL PROTEIN, SERUM 6.1 g/dL (6.4-8.2); TRIGLYCERIDES 98 mg/dL (15-150); UREA NITROGEN, BLOOD 10 mg/dL (7-18)
[2019-05-07] MEDS: ATORVASTATIN CALCIUM 20 MG TABLET PO SCH (08:55)
[2019-05-07 16:47] VITALS: BP 131/73
[2019-05-07] MEDS ORDERED: QUEtiapine FUMARATE 50 MG ER TABLET PO SCH (21:00)
[2019-05-07] MEDS: LORazepam 2 MG TABLET PO PRN (23:09)
[2019-05-07] MEDS: ZOLPIDEM TARTRATE 10 MG TABLET PO PRN (23:52)
[2019-05-08 00:18] VITALS: BP 140/86
[2019-05-08] MEDS: FERROUS SULFATE 325 MG EC TABLET PO SCH ×2 (07:04→16:21)
[2019-05-08] MEDS: ATORVASTATIN CALCIUM 20 MG TABLET PO SCH (08:07)
[2019-05-08 08:30] VITALS: BP 121/71
[2019-05-08] MEDS: LORazepam 2 MG TABLET PO PRN ×2 (09:12→16:21)
[2019-05-08] MEDS: ZOLPIDEM TARTRATE 10 MG TABLET PO PRN (20:27)
[2019-05-08] MEDS ORDERED: QUEtiapine FUMARATE 300 MG ER TABLET PO SCH (21:00)
[2019-05-08 21:48] VITALS: BP 108/68
[2019-05-09] MEDS: FERROUS SULFATE 325 MG EC TABLET PO SCH ×2 (06:39→16:16)
[2019-05-09 08:41] VITALS: BP 119/76
[2019-05-09] MEDS: ATORVASTATIN CALCIUM 20 MG TABLET PO SCH (08:52)
[2019-05-09] MEDS: LORazepam 2 MG TABLET PO PRN ×2 (08:52→16:16)
[2019-05-09 16:28] VITALS: BP 124/92
[2019-05-09] MEDS: RisperiDONE 1 MG TABLET PO SCH (20:04)
[2019-05-09] MEDS: ZOLPIDEM TARTRATE 10 MG TABLET PO PRN (20:59)
[2019-05-09] MEDS ORDERED: QUEtiapine FUMARATE 50 MG ER TABLET PO SCH (21:00)
[2019-05-10] MEDS: LORazepam 2 MG TABLET PO PRN ×3 (01:46→21:04)
[2019-05-10 05:30] VITALS: BP 125/77
[2019-05-10] MEDS: FERROUS SULFATE 325 MG EC TABLET PO SCH ×2 (07:01→16:50)
[2019-05-10 08:10] VITALS: BP 128/80
[2019-05-10] MEDS: ATORVASTATIN CALCIUM 20 MG TABLET PO SCH (08:26)
[2019-05-10 16:25] VITALS: BP 130/84
[2019-05-10] MEDS: RisperiDONE 1 MG TABLET PO SCH (20:00)
[2019-05-11 05:33] VITALS: BP 120/63
[2019-05-11] MEDS: FERROUS SULFATE 325 MG EC TABLET PO SCH ×2 (06:58→17:03)
[2019-05-11] MEDS: ATORVASTATIN CALCIUM 20 MG TABLET PO SCH (08:30)
[2019-05-11 12:21] VITALS: BP 118/72
[2019-05-11 16:24] VITALS: BP 129/83
[2019-05-11] MEDS: RisperiDONE 1 MG TABLET PO SCH (20:19)
[2019-05-11] MEDS: ZOLPIDEM TARTRATE 10 MG TABLET PO PRN (22:50)
[2019-05-12] MEDS: LORazepam 2 MG TABLET PO PRN ×3 (00:42→17:55)
[2019-05-12 01:19] VITALS: BP 139/76
[2019-05-12] MEDS: FERROUS SULFATE 325 MG EC TABLET PO SCH ×2 (06:59→16:38)
[2019-05-12] MEDS: ATORVASTATIN CALCIUM 20 MG TABLET PO SCH (08:04)
[2019-05-12 08:09] VITALS: BP 137/74
[2019-05-12] MEDS: DOCUSATE SODIUM 100 MG CAPSULE PO PRN (13:25)
[2019-05-12 16:25] VITALS: BP 120/73
[2019-05-12] MEDS ORDERED: RISP1TAB27 PO (18:31)
[2019-05-12] MEDS: ZOLPIDEM TARTRATE 10 MG TABLET PO PRN (20:24)
[2019-05-12] MEDS ORDERED: RisperiDONE 4 MG TABLET PO SCH (21:00)
[2019-05-13 02:45] VITALS: BP 123/66
[2019-05-13] MEDS: FERROUS SULFATE 325 MG EC TABLET PO SCH (06:27)
[2019-05-13 08:05] VITALS: BP 142/77
[2019-05-13] MEDS: ATORVASTATIN CALCIUM 20 MG TABLET PO SCH (08:23)
[2019-05-13] MEDS: DOCUSATE SODIUM 100 MG CAPSULE PO PRN ×2 (08:45→09:23)
[2019-05-14] MEDS ORDERED: LORA-1000 PO (17:59)
[2019-05-14] MEDS ORDERED: METF-960 PO (17:59)
[2019-05-15] MEDS ORDERED: RISP4TAB73 PO (15:42)
== END 2019-05-13 13:20 | disposition home or self-care (01) | DRG 753 ==
LOC: B2S 05-06 10:50 → B3A 05-12 10:01
PROVIDERS: ADMIT Psychiatry & Neurology Psychiatry; ATTEND Psychiatry & Neurology Psychiatry
DX: F31.5 Bipolar disorder, current episode depressed, severe, with psychotic features (principal); R45.851 Suicidal ideations; Z28.21 Immunization not carried out because of patient refusal; E78.5 Hyperlipidemia, unspecified; D64.9 Anemia, unspecified; I10 Essential (primary) hypertension; Z79.899 Other long term (current) drug therapy; G47.00 Insomnia, unspecified
CPT/HCPCS: 80307; 83036; 84443; 87086; Q0162

== ENCOUNTER 2019-05-14 16:52 | Inpatient (IN) | payer MEDICAID ==
[~2019-05-14] VITALS: Ht 160 cm; Wt 65.8 kg
[~2019-05-14 16:52] MED LIST changes: -DIVA-78 PO; -HALO10 PO; -LITH600 PO; +RISP1 PO
[2019-05-14] MEDS ORDERED: LORA-1000 PO (17:59)
[2019-05-14] MEDS ORDERED: METF-960 PO (17:59)
[2019-05-14 19:44] LABS: AMPHET/METH SCREEN,URINE NEGATIVE (NEGATIVE); BARBITURATE SCREEN, URINE NEGATIVE (NEGATIVE); BENZODIAZEPINES SCREEN,URINE NEGATIVE (NEGATIVE); CANNABINOID SCREEN,URINE NEGATIVE (NEGATIVE); COCAINE SCREEN,URINE NEGATIVE (NEGATIVE); METHADONE SCREEN, URINE NEGATIVE (NEGATIVE); OPIATE SCREEN,URINE NEGATIVE (NEGATIVE)
[2019-05-14 19:51] LABS: APPEARANCE,URINE CLEAR (CLEAR); BILIRUBIN,URINE NEGATIVE (NEGATIVE); GLUCOSE, URINE (UA) NEGATIVE (NEGATIVE); KETONES,URINE NEGATIVE (NEGATIVE); LEUKOCYTE ESTERASE ,URINE MODERATE (NEGATIVE); NITRATE,URINE NEGATIVE (NEGATIVE); OCCULT BLOOD,URINE NEGATIVE (NEGATIVE); PH,URINE 7.5 (5.0-8.0); PROTEIN,URINE NEGATIVE (NEGATIVE); UROBILINOGEN,URINE 0.2 mg/dL (<=1.0)
[2019-05-14 19:52] LABS: PHENCYCLIDINE SCREEN,URINE NEGATIVE (NEGATIVE)
[2019-05-14] MEDS ORDERED: LORazepam 1 MG TABLET PO ONE (20:00)
[2019-05-14] MEDS ORDERED: DiphenhydrAMINE HCL 25 MG CAPSULE PO ONE (20:00)
[2019-05-14] MEDS ORDERED: RisperiDONE 1 MG TABLET PO ONE (20:00)
[2019-05-14] MEDS ORDERED: HALOPERIDOL 5 MG TABLET PO PRN (20:15)
[2019-05-14 20:37] LABS: BACTERIA,URINE None Seen /HPF (None Seen); RBC,URINE None Seen /HPF (0-2); SQUAMOUS EPITHELIAL CELL,UR Few /LPF (None Seen); WBC,URINE 0-2 /HPF (0-5)
[2019-05-14] MEDS ORDERED: LORazepam 2 MG/ML VIAL IM ONE (20:45)
[2019-05-14] MEDS ORDERED: DiphenhydrAMINE HCL 50 MG/ML VIAL IM ONE (20:45)
[2019-05-14 21:48] LABS: BASOPHILS % (AUTO) 0.6 % (0.0-2.0); EOSINOPHILS % (AUTO) 0.2 % (1.0-6.0); HEMATOCRIT 38.4 % (36-46); HEMOGLOBIN 12.9 g/dL (12.0-16.0); LYMPHOCYTES # (AUTO) 2.1 K/uL (1.0-4.8); LYMPHOCYTES % (AUTO) 25.5 % (22.0-44.0); MEAN CORPUSCULAR HEMOGLOBIN 28.6 pg (26.0-34.0); MEAN CORPUSCULAR HGB CONC 33.5 G/dL (31.0-37.0); MEAN CORPUSCULAR VOLUME 85 fL (80-100); MONOCYTES # (AUTO) 0.5 K/uL (0.1-1.0); MONOCYTES % (AUTO) 6.2 % (2.0-9.0); NEUTROPHILS # (AUTO) 5.5 K/uL (1.8-7.7); NEUTROPHILS % (AUTO) 67.5 % (40.0-70.0); PLATELET COUNT (AUTO) 354 K/uL (150-450); RED CELL DISTRIBUTION WIDTH 13.5 % (11.5-14.5)
[2019-05-14 21:59] LABS: ANION GAP 10 mmol/L (8-16); CALCIUM, TOTAL 9.5 mg/dL (8.8-10.5); CARBON DIOXIDE 27 mmol/L (22-29); CHLORIDE 103 mmol/L (98-107); CREATININE 0.69 mg/dL (0.60-1.30); GLOMERULAR FILTR. RATE CALC > 60 mL/min (>60); GLUCOSE,RANDOM 107 mg/dL (70-110); POTASSIUM 3.5 mmol/L (3.5-5.1); SODIUM SERUM 140 mmol/L (136-145); UREA NITROGEN, BLOOD 9 mg/dL (7-18)
[2019-05-14 22:04] LABS: ALANINE AMINOTRANSFERASE 52 U/L (12-78); ALBUMIN 4.1 g/dL (3.4-5.0); ALKALINE PHOSPHATASE 99 U/L (46-116); ASPARTATE AMINOTRANSFERASE 30 U/L (15-37); BILIRUBIN,TOTAL 0.3 mg/dL (0.1-1.0); TOTAL PROTEIN, SERUM 7.2 g/dL (6.4-8.2)
[2019-05-15 01:47] VITALS: BP 127/85
[2019-05-15] MEDS: ZOLPIDEM TARTRATE 10 MG TABLET PO PRN (02:09)
[2019-05-15 08:13] LABS: CHOL/HDL RATIO 3.6 (3.9-5.7)
[2019-05-15 08:49] VITALS: BP 136/85
[2019-05-15] MEDS: LORazepam 2 MG TABLET PO PRN ×3 (08:58→21:07)
[2019-05-15] MEDS ORDERED: HydrOXYzine PAMOATE 50 MG CAPSULE PO PRN (10:45)
[2019-05-15] MEDS ORDERED: ACETAMINOPHEN 325 MG TABLET PO PRN (10:45)
[2019-05-15] MEDS ORDERED: PROMETHAZINE HCL 25 MG TABLET PO PRN (10:45)
[2019-05-15] MEDS ORDERED: TUBERCULIN, PURIFIED PROTEIN DERIVATIVE 5 TU/0.1 ML SYRINGE ID ONE (10:45)
[2019-05-15] MEDS ORDERED: MAGNESIUM HYDROXIDE SUSPENSION 30 ML UDCUP PO PRN (10:45)
[2019-05-15] MEDS ORDERED: PALIPERIDONE 3 MG ER TABLET PO PRN ×2 (10:45→16:00)
[2019-05-15] MEDS ORDERED: LOPERAMIDE HCL 2 MG CAPSULE PO PRN (10:45)
[2019-05-15] MEDS ORDERED: GuaiFENesin/D-METHORPHAN [SUGAR-FREE] 200-20MG/10 ML SYRUP UDCUP PO PRN (10:45)
[2019-05-15] MEDS ORDERED: PALIPERIDONE PALMITATE 234 MG/1.5 ML SYRINGE IM ONE ×2 (10:45→16:00)
[2019-05-15] MEDS ORDERED: MAG HYDROX/AL HYDROX/SIMETH ES 30 ML SUSPENSION UDCUP PO PRN (10:45)
[2019-05-15] MEDS ORDERED: RISP4 PO (15:42)
[2019-05-15] MEDS ORDERED: ARIPiprazole 5 MG TABLET PO PRN (15:45)
[2019-05-15] MEDS ORDERED: ARIPiprazole ER SUSPENSION 400 MG PRE-FILLED DUAL CHAMBER SYRINGE IM ONE (15:45)
[2019-05-15 16:20] VITALS: BP 121/82
[2019-05-15] MEDS: THIAMINE HCL 100 MG TABLET PO SCH (16:37)
[2019-05-15] MEDS: DIVALPROEX SODIUM 250 MG ER TABLET PO SCH (20:22)
[2019-05-15] MEDS ORDERED: PALIPERIDONE 3 MG ER TABLET PO SCH (21:00)
[2019-05-16 04:40] VITALS: BP 123/75
[2019-05-16 08:30] VITALS: BP 125/77
[2019-05-16] MEDS: FOLIC ACID 1 MG TABLET PO SCH (08:38)
[2019-05-16] MEDS: LORazepam 2 MG TABLET PO PRN (08:38)
[2019-05-16] MEDS: THIAMINE HCL 100 MG TABLET PO SCH ×2 (08:39→16:45)
[2019-05-16] MEDS: MULTIVITAMINS WITH MINERALS, THERAPEUTIC TABLET PO SCH (08:39)
[2019-05-16] MEDS ORDERED: ARIPiprazole 15 MG TABLET PO SCH (09:00)
[2019-05-16 16:03] VITALS: BP 129/71
[2019-05-16] MEDS: ZOLPIDEM TARTRATE 10 MG TABLET PO PRN (20:46)
[2019-05-16] MEDS: DIVALPROEX SODIUM 250 MG ER TABLET PO SCH (20:46)
[2019-05-17 02:17] VITALS: BP 130/85
[2019-05-17 08:19] VITALS: BP 116/61
[2019-05-17] MEDS: MULTIVITAMINS WITH MINERALS, THERAPEUTIC TABLET PO SCH (08:30)
[2019-05-17] MEDS: FOLIC ACID 1 MG TABLET PO SCH (08:30)
[2019-05-17] MEDS: LORazepam 2 MG TABLET PO PRN ×2 (08:30→20:20)
[2019-05-17] MEDS: THIAMINE HCL 100 MG TABLET PO SCH ×2 (08:30→16:11)
[2019-05-17 16:06] VITALS: BP 136/77
[2019-05-17] MEDS: DIVALPROEX SODIUM 250 MG ER TABLET PO SCH (20:18)
[2019-05-17 22:12] LABS: GLUCOMETER DEV NAME(LOC) BV3N.; GLUCOSE,POINT OF CARE 291 MG/DL (70-110)
[2019-05-18 01:13] VITALS: BP 122/80
[2019-05-18] MEDS: MULTIVITAMINS WITH MINERALS, THERAPEUTIC TABLET PO SCH (08:19)
[2019-05-18] MEDS: THIAMINE HCL 100 MG TABLET PO SCH ×2 (08:19→16:57)
[2019-05-18] MEDS: LORazepam 2 MG TABLET PO PRN ×3 (08:19→20:03)
[2019-05-18] MEDS: FOLIC ACID 1 MG TABLET PO SCH (08:19)
[2019-05-18 08:20] VITALS: BP 110/74
[2019-05-18 17:16] VITALS: BP 125/87
[2019-05-18] MEDS: DIVALPROEX SODIUM 250 MG ER TABLET PO SCH (20:03)
[2019-05-19 04:00] VITALS: BP 120/76
[2019-05-19] MEDS: MULTIVITAMINS WITH MINERALS, THERAPEUTIC TABLET PO SCH (08:17)
[2019-05-19] MEDS: FOLIC ACID 1 MG TABLET PO SCH (08:17)
[2019-05-19] MEDS: THIAMINE HCL 100 MG TABLET PO SCH ×2 (08:18→16:09)
[2019-05-19] MEDS: LORazepam 2 MG TABLET PO PRN (08:18)
[2019-05-19 08:21] VITALS: BP 108/78
[2019-05-19] MEDS ORDERED: PALIPERIDONE PALMITATE 156 MG/ML SYRINGE IM ONE ×2 (09:00)
[2019-05-19 16:12] VITALS: BP 130/80
[2019-05-19] MEDS: DIVALPROEX SODIUM 250 MG ER TABLET PO SCH (20:36)
[2019-05-20 06:03] VITALS: BP 127/85
[2019-05-20 08:14] VITALS: BP 110/57
[2019-05-20] MEDS: THIAMINE HCL 100 MG TABLET PO SCH ×2 (08:34→16:46)
[2019-05-20] MEDS: LamoTRIgine 25 MG TABLET PO SCH (08:34)
[2019-05-20] MEDS: FOLIC ACID 1 MG TABLET PO SCH (08:34)
[2019-05-20] MEDS: MULTIVITAMINS WITH MINERALS, THERAPEUTIC TABLET PO SCH (08:34)
[2019-05-20] MEDS: LORazepam 1 MG TABLET PO PRN (16:45)
[2019-05-20 17:19] VITALS: BP 104/61
[2019-05-21 03:28] VITALS: BP 104/64
[2019-05-21] MEDS: FOLIC ACID 1 MG TABLET PO SCH (08:45)
[2019-05-21] MEDS: THIAMINE HCL 100 MG TABLET PO SCH ×2 (08:45→16:47)
[2019-05-21] MEDS: LamoTRIgine 25 MG TABLET PO SCH (08:45)
[2019-05-21] MEDS: MULTIVITAMINS WITH MINERALS, THERAPEUTIC TABLET PO SCH (08:45)
[2019-05-21 09:10] VITALS: BP 114/87
[2019-05-21] MEDS ORDERED: PALI117D IM (15:12)
[2019-05-21] MEDS ORDERED: LAMO25TA66 PO (15:12)
[2019-05-21] MEDS ORDERED: DIVA500T52 PO (15:49)
[2019-05-21 18:17] VITALS: BP 118/69
[2019-05-21] MEDS: DIVALPROEX SODIUM 500 MG ER TABLET PO SCH (20:45)
[2019-05-22 04:44] VITALS: BP 123/77
[2019-05-22 08:29] VITALS: BP 100/60
[2019-05-22] MEDS: FOLIC ACID 1 MG TABLET PO SCH (08:40)
[2019-05-22] MEDS: THIAMINE HCL 100 MG TABLET PO SCH (08:40)
[2019-05-22] MEDS: LORazepam 1 MG TABLET PO PRN (08:41)
[2019-05-22] MEDS: MULTIVITAMINS WITH MINERALS, THERAPEUTIC TABLET PO SCH (08:41)
[2019-05-22] MEDS: LamoTRIgine 25 MG TABLET PO SCH (08:41)
[2019-05-22] MEDS: DIVALPROEX SODIUM 500 MG ER TABLET PO SCH (08:41)
[2019-06-12] MEDS ORDERED: ARIPiprazole ER SUSPENSION 400 MG PRE-FILLED DUAL CHAMBER SYRINGE IM SCH (09:00)
== END 2019-05-22 12:34 | disposition home or self-care (01) | DRG 750 ==
LOC: EMS 16:54 → B3A 21:28
PROVIDERS: ADMIT Psychiatry & Neurology Psychiatry; ATTEND Psychiatry & Neurology Psychiatry
DX: F25.9 Schizoaffective disorder, unspecified (principal); Z91.14 Patient's other noncompliance with medication regimen; D64.9 Anemia, unspecified; E78.5 Hyperlipidemia, unspecified; N39.0 Urinary tract infection, site not specified
CPT/HCPCS: 87081; G0480; J1200; J2060

== ENCOUNTER 2019-07-31 21:20 | Inpatient (IN) | payer MEDICAID ==
[~2019-07-31] VITALS: Ht 157.5 cm; Wt 63.7 kg
[~2019-07-31 21:20] MED LIST changes: -ATOR20TA86 PO; +DIVA-80 PO; -FERR-89 PO; +LAMO25TA66 PO; +PALI117D IM; -RISP1 PO
[2019-07-31] MEDS ORDERED: ChlorproMAZINE HCL 100 MG TABLET PO PRN (22:15)
[2019-07-31] MEDS ORDERED: ZOLPIDEM TARTRATE 5 MG TABLET PO PRN (22:15)
[2019-08-01 01:33] VITALS: BP 123/62
[2019-08-01] MEDS ORDERED: PNEUMOCOCCAL VACCINE POLYVALENT 0.5 ML VIAL [PPSV23] IM ONE (02:15)
[2019-08-01 08:49] LABS: BASOPHILS % (AUTO) 0.2 % (0.0-2.0); EOSINOPHILS % (AUTO) 0.4 % (1.0-6.0); HEMATOCRIT 38.3 % (36-46); HEMOGLOBIN 12.8 g/dL (12.0-16.0); LYMPHOCYTES # (AUTO) 1.9 K/uL (1.0-4.8); LYMPHOCYTES % (AUTO) 31.4 % (22.0-44.0); MEAN CORPUSCULAR HEMOGLOBIN 29.6 pg (26.0-34.0); MEAN CORPUSCULAR HGB CONC 33.4 G/dL (31.0-37.0); MEAN CORPUSCULAR VOLUME 89 fL (80-100); MONOCYTES # (AUTO) 0.6 K/uL (0.1-1.0); MONOCYTES % (AUTO) 9.8 % (2.0-9.0); NEUTROPHILS # (AUTO) 3.5 K/uL (1.8-7.7); NEUTROPHILS % (AUTO) 58.2 % (40.0-70.0); PLATELET COUNT (AUTO) 155 K/uL (150-450); RED BLOOD CELL COUNT(AUTO) 4.32 MIL/uL (4.00-5.20); RED CELL DISTRIBUTION WIDTH 14.2 % (11.5-14.5)
[2019-08-01] MEDS: BACITRACIN 28.4 GM OINTMENT TP SCH ×2 (09:00→16:44)
[2019-08-01] MEDS: PALIPERIDONE 3 MG ER TABLET PO SCH (09:00)
[2019-08-01] MEDS: LamoTRIgine 25 MG TABLET PO SCH (09:00)
[2019-08-01 09:42] LABS: ALANINE AMINOTRANSFERASE 20 U/L (12-78); ALBUMIN 3.5 g/dL (3.4-5.0); ALKALINE PHOSPHATASE 59 U/L (46-116); ANION GAP 6 mmol/L (8-16); ASPARTATE AMINOTRANSFERASE 14 U/L (15-37); BILIRUBIN,TOTAL 0.2 mg/dL (0.1-1.0); CARBON DIOXIDE 31 mmol/L (22-29); CHLORIDE 105 mmol/L (98-107); CHOLESTEROL 185 mg/dL (131-200); CREATININE 0.62 mg/dL (0.60-1.30); FREE T4 (FREE THYROXINE) 0.99 ng/dL (0.76-1.46); GLOMERULAR FILTR. RATE CALC > 60 mL/min (>60); GLUCOSE,RANDOM 96 mg/dL (70-110); HCG,QUANTITATIVE < 1 mIU/mL (0-6); HDL CHOLESTEROL 31 mg/dL (40-60); LDL CHOL (CALC.) 129 mg/dL (0-130); POTASSIUM 4.8 mmol/L (3.5-5.1); SODIUM SERUM 142 mmol/L (136-145); THYROID STIMULATING HORMONE 3.43 uIU/mL (0.36-3.74); TOTAL PROTEIN, SERUM 6.9 g/dL (6.4-8.2); TRIGLYCERIDES 125 mg/dL (15-150); UREA NITROGEN, BLOOD 11 mg/dL (7-18); VALPROIC ACID 57 mcg/mL (50-100)
[2019-08-01 10:15] VITALS: BP 97/61
[2019-08-01] MEDS ORDERED: MAGNESIUM HYDROXIDE SUSPENSION 30 ML UDCUP PO PRN (14:15)
[2019-08-01] MEDS ORDERED: ONDANSETRON HCL 4 MG TABLET PO PRN (14:15)
[2019-08-01] MEDS ORDERED: DOCUSATE SODIUM 100 MG CAPSULE PO PRN (14:15)
[2019-08-01] MEDS ORDERED: MAG HYDROX/AL HYDROX/SIMETH ES 30 ML SUSPENSION UDCUP PO PRN (14:15)
[2019-08-01] MEDS ORDERED: IBUPROFEN 400 MG TABLET PO PRN (14:15)
[2019-08-01] MEDS ORDERED: GuaiFENesin/D-METHORPHAN [SUGAR-FREE] 200-20MG/10 ML SYRUP UDCUP PO PRN (14:15)
[2019-08-01] MEDS ORDERED: ALBUTEROL SULFATE HFA 90 MCG/PUFF 8 GM INHALER IH PRN (14:15)
[2019-08-01] MEDS ORDERED: ACETAMINOPHEN 325 MG TABLET PO PRN (14:15)
[2019-08-01] MEDS ORDERED: CloNIDine HCL 0.1 MG TABLET PO PRN (14:15)
[2019-08-01] MEDS ORDERED: PETROLATUM,WHITE 28 GM JELLY TP PRN (14:15)
[2019-08-01] MEDS ORDERED: LOPERAMIDE HCL 2 MG CAPSULE PO PRN (14:15)
[2019-08-01] MEDS ORDERED: NICOTINE 14 MG/24 HOUR PATCH TD PRN (14:15)
[2019-08-01 16:47] VITALS: BP 109/78
[2019-08-01] MEDS: DIVALPROEX SODIUM 500 MG ER TABLET PO SCH (20:01)
[2019-08-02] VITALS: BP_SYST 117; BP_SYST 140; BP_DIAS 72; BP_DIAS 81
[2019-08-02] MEDS: LORazepam 2 MG TABLET PO PRN ×2 (04:34→22:13)
[2019-08-02] MEDS: PALIPERIDONE 3 MG ER TABLET PO SCH (08:25)
[2019-08-02] MEDS: BACITRACIN 28.4 GM OINTMENT TP SCH ×2 (08:25→17:00)
[2019-08-02] MEDS: LamoTRIgine 25 MG TABLET PO SCH (08:25)
[2019-08-02 09:40] VITALS: BP 104/65
[2019-08-02 16:37] VITALS: BP 107/62
[2019-08-02] MEDS: DIVALPROEX SODIUM 500 MG ER TABLET PO SCH (20:11)
[2019-08-02] MEDS ORDERED: RisperiDONE 2 MG TABLET PO SCH (21:00)
[2019-08-03 00:18] VITALS: BP 105/69
[2019-08-03 08:13] VITALS: BP 110/64
[2019-08-03] MEDS: LamoTRIgine 25 MG TABLET PO SCH (08:23)
[2019-08-03] MEDS: LORazepam 2 MG TABLET PO PRN ×2 (08:23→22:13)
[2019-08-03] MEDS: BACITRACIN 28.4 GM OINTMENT TP SCH ×2 (09:21→16:50)
[2019-08-03] MEDS ORDERED: PALIPERIDONE PALMITATE 234 MG/1.5 ML SYRINGE IM ONE (11:30)
[2019-08-03] MEDS ORDERED: PALIPERIDONE 1.5 MG ER TABLET PO PRN (11:30)
[2019-08-03 16:44] VITALS: BP 104/60
[2019-08-03] MEDS: DIVALPROEX SODIUM 500 MG ER TABLET PO SCH (20:02)
[2019-08-03] MEDS ORDERED: PALIPERIDONE 3 MG ER TABLET PO SCH (21:00)
[2019-08-04 06:00] VITALS: BP 120/72
[2019-08-04 08:17] VITALS: BP 105/87
[2019-08-04] MEDS: LamoTRIgine 25 MG TABLET PO SCH (08:44)
[2019-08-04] MEDS: BACITRACIN 28.4 GM OINTMENT TP SCH ×2 (09:02→16:55)
[2019-08-04 16:09] VITALS: BP 102/64
[2019-08-04] MEDS: DIVALPROEX SODIUM 500 MG ER TABLET PO SCH (20:39)
[2019-08-04] MEDS: LORazepam 2 MG TABLET PO PRN (20:39)
[2019-08-05 00:54] VITALS: BP 101/80
[2019-08-05] MEDS: LamoTRIgine 25 MG TABLET PO SCH (08:02)
[2019-08-05] MEDS: BACITRACIN 28.4 GM OINTMENT TP SCH ×2 (08:04→18:37)
[2019-08-05 08:19] VITALS: BP 113/67
[2019-08-05 16:10] VITALS: BP 109/65
[2019-08-05] MEDS: LORazepam 2 MG TABLET PO PRN (21:06)
[2019-08-05] MEDS: DIVALPROEX SODIUM 500 MG ER TABLET PO SCH (21:06)
[2019-08-06 02:04] VITALS: BP 109/53
[2019-08-06] MEDS: LamoTRIgine 25 MG TABLET PO SCH (08:04)
[2019-08-06] MEDS: BACITRACIN 28.4 GM OINTMENT TP SCH (08:05)
[2019-08-06 08:14] VITALS: BP 113/65
[2019-08-06] MEDS ORDERED: PALIPERIDONE 1.5 MG ER TABLET PO SCH (09:00)
[2019-08-06] MEDS ORDERED: DIVA-80 PO (12:58)
[2019-08-06] MEDS ORDERED: LAMO25TA66 PO (12:58)
[2019-08-06] MEDS ORDERED: PALI117D IM (13:00)
[2019-08-07] MEDS ORDERED: PALIPERIDONE PALMITATE 156 MG/ML SYRINGE IM ONE (09:00)
== END 2019-08-06 14:00 | disposition home or self-care (01) | DRG 750 ==
LOC: B2S 08-01 00:18
PROVIDERS: ADMIT Psychiatry & Neurology Psychiatry; ATTEND Psychiatry & Neurology Psychiatry
DX: F20.0 Paranoid schizophrenia (principal); Z91.19 Patient's noncompliance with other medical treatment and regimen; D64.9 Anemia, unspecified; E78.5 Hyperlipidemia, unspecified; I10 Essential (primary) hypertension
CPT/HCPCS: 84436; 84439; 84443; 86592

== ENCOUNTER 2019-08-21 08:43 | Inpatient (IN) | payer MEDICAID, OTHER ==
[~2019-08-21] VITALS: Ht 157.5 cm; Wt 67.6 kg
[2019-08-21] MEDS ORDERED: MAGNESIUM HYDROXIDE SUSPENSION 30 ML UDCUP PO PRN (10:00)
[2019-08-21] MEDS ORDERED: GuaiFENesin/D-METHORPHAN [SUGAR-FREE] 200-20MG/10 ML SYRUP UDCUP PO PRN (10:00)
[2019-08-21] MEDS ORDERED: MAG HYDROX/AL HYDROX/SIMETH ES 30 ML SUSPENSION UDCUP PO PRN (10:00)
[2019-08-21] MEDS ORDERED: HydrOXYzine PAMOATE 50 MG CAPSULE PO PRN (10:00)
[2019-08-21] MEDS ORDERED: ACETAMINOPHEN 325 MG TABLET PO PRN (10:00)
[2019-08-21] MEDS ORDERED: ZOLPIDEM TARTRATE 10 MG TABLET PO PRN (10:00)
[2019-08-21] MEDS ORDERED: LOPERAMIDE HCL 2 MG CAPSULE PO PRN (10:00)
[2019-08-21] MEDS ORDERED: PROMETHAZINE HCL 25 MG TABLET PO PRN ×2 (10:00)
[2019-08-21 10:01] LABS: BASOPHILS % (AUTO) 0.3 % (0.0-2.0); EOSINOPHILS % (AUTO) 0.5 % (1.0-6.0); HEMATOCRIT 39.4 % (36-46); HEMOGLOBIN 13.3 g/dL (12.0-16.0); LYMPHOCYTES # (AUTO) 1.3 K/uL (1.0-4.8); LYMPHOCYTES % (AUTO) 21.9 % (22.0-44.0); MEAN CORPUSCULAR HEMOGLOBIN 30.1 pg (26.0-34.0); MEAN CORPUSCULAR HGB CONC 33.7 G/dL (31.0-37.0); MEAN CORPUSCULAR VOLUME 89 fL (80-100); MONOCYTES # (AUTO) 0.6 K/uL (0.1-1.0); MONOCYTES % (AUTO) 10.5 % (2.0-9.0); NEUTROPHILS # (AUTO) 3.8 K/uL (1.8-7.7); NEUTROPHILS % (AUTO) 66.8 % (40.0-70.0); PLATELET COUNT (AUTO) 165 K/uL (150-450); RED BLOOD CELL COUNT(AUTO) 4.42 MIL/uL (4.00-5.20); RED CELL DISTRIBUTION WIDTH 14.2 % (11.5-14.5)
[2019-08-21 10:11] LABS: ANION GAP 7 mmol/L (8-16); CALCIUM, TOTAL 9.3 mg/dL (8.8-10.5); CARBON DIOXIDE 28 mmol/L (22-29); CHLORIDE 103 mmol/L (98-107); CREATININE 0.72 mg/dL (0.60-1.30); GLOMERULAR FILTR. RATE CALC > 60 mL/min (>60); GLUCOSE,RANDOM 106 mg/dL (70-110); POTASSIUM 4.2 mmol/L (3.5-5.1); SODIUM SERUM 138 mmol/L (136-145); UREA NITROGEN, BLOOD 13 mg/dL (7-18)
[2019-08-21 10:11] LABS: AMPHET/METH SCREEN,URINE NEGATIVE (NEGATIVE); BARBITURATE SCREEN, URINE NEGATIVE (NEGATIVE); BENZODIAZEPINES SCREEN,URINE NEGATIVE (NEGATIVE); CANNABINOID SCREEN,URINE NEGATIVE (NEGATIVE); COCAINE SCREEN,URINE NEGATIVE (NEGATIVE); METHADONE SCREEN, URINE NEGATIVE (NEGATIVE); OPIATE SCREEN,URINE NEGATIVE (NEGATIVE)
[2019-08-21 10:12] LABS: PHENCYCLIDINE SCREEN,URINE NEGATIVE (NEGATIVE)
[2019-08-21 10:25] LABS: ALANINE AMINOTRANSFERASE 27 U/L (12-78); ALBUMIN 3.8 g/dL (3.4-5.0); ALKALINE PHOSPHATASE 67 U/L (46-116); ASPARTATE AMINOTRANSFERASE 21 U/L (15-37); BILIRUBIN,TOTAL 0.2 mg/dL (0.1-1.0); TOTAL PROTEIN, SERUM 8.3 g/dL (6.4-8.2); VALPROIC ACID 47 mcg/mL (50-100)
[2019-08-21] MEDS ORDERED: PNEUMOCOCCAL VACCINE POLYVALENT 0.5 ML VIAL [PPSV23] IM ONE (13:45)
[2019-08-21 15:18] VITALS: BP 120/78
[2019-08-21] MEDS ORDERED: PALIPERIDONE PALMITATE 156 MG/ML SYRINGE IM ONE (16:00)
[2019-08-21] MEDS: THIAMINE 100 MG TABLET PO SCH (16:56)
[2019-08-21 17:00] VITALS: BP 111/69
[2019-08-21] MEDS ORDERED: PALIPERIDONE 3 MG ER TABLET PO PRN (17:00)
[2019-08-21] MEDS: DIVALPROEX SODIUM 500 MG ER TABLET PO SCH (21:08)
[2019-08-21] MEDS: LORazepam 2 MG TABLET PO PRN (21:08)
[2019-08-21] MEDS: MELATONIN 5 MG TABLET PO SCH (21:08)
[2019-08-22 03:51] VITALS: BP 115/67
[2019-08-22] MEDS: MULTIVITAMINS WITH MINERALS, THERAPEUTIC TABLET PO SCH (08:26)
[2019-08-22] MEDS: THIAMINE 100 MG TABLET PO SCH ×2 (08:26→16:19)
[2019-08-22] MEDS: FOLIC ACID 1 MG TABLET PO SCH (08:26)
[2019-08-22 09:11] VITALS: BP 128/68
[2019-08-22 16:21] VITALS: BP 106/65
[2019-08-22] MEDS: DIVALPROEX SODIUM 500 MG ER TABLET PO SCH (21:09)
[2019-08-22] MEDS: MELATONIN 5 MG TABLET PO SCH (21:09)
[2019-08-22] MEDS: LORazepam 2 MG TABLET PO PRN (21:09)
[2019-08-23 00:49] VITALS: BP 121/67
[2019-08-23] MEDS: MULTIVITAMINS WITH MINERALS, THERAPEUTIC TABLET PO SCH (08:00)
[2019-08-23] MEDS: THIAMINE 100 MG TABLET PO SCH ×2 (08:00→16:35)
[2019-08-23] MEDS: FOLIC ACID 1 MG TABLET PO SCH (08:00)
[2019-08-23 08:09] LABS: APPEARANCE,URINE CLEAR (CLEAR); BILIRUBIN,URINE NEGATIVE (NEGATIVE); GLUCOSE, URINE (UA) NEGATIVE (NEGATIVE); KETONES,URINE NEGATIVE (NEGATIVE); LEUKOCYTE ESTERASE ,URINE NEGATIVE (NEGATIVE); NITRATE,URINE NEGATIVE (NEGATIVE); OCCULT BLOOD,URINE NEGATIVE (NEGATIVE); PH,URINE 6.5 (5.0-8.0); PROTEIN,URINE NEGATIVE (NEGATIVE); UROBILINOGEN,URINE 0.2 mg/dL (<=1.0)
[2019-08-23 08:14] LABS: CHOL/HDL RATIO 4.2 (3.9-5.7)
[2019-08-23 09:08] VITALS: BP 114/69
[2019-08-23 16:24] VITALS: BP 113/81
[2019-08-23] MEDS: DIVALPROEX SODIUM 500 MG ER TABLET PO SCH (20:38)
[2019-08-23] MEDS: LORazepam 2 MG TABLET PO PRN (20:38)
[2019-08-23] MEDS: MELATONIN 5 MG TABLET PO SCH (20:38)
[2019-08-24 06:41] VITALS: BP 106/73
[2019-08-24 08:41] VITALS: BP 109/71
[2019-08-24] MEDS: MULTIVITAMINS WITH MINERALS, THERAPEUTIC TABLET PO SCH (09:03)
[2019-08-24] MEDS: FOLIC ACID 1 MG TABLET PO SCH (09:03)
[2019-08-24] MEDS: THIAMINE 100 MG TABLET PO SCH ×2 (09:03→16:25)
[2019-08-24] MEDS ORDERED: PALI156D IM (14:42)
[2019-08-24] MEDS ORDERED: DIVA-80 PO (14:42)
[2019-08-24] MEDS ORDERED: MELA5TAB3 PO (14:42)
[2019-08-24 16:08] VITALS: BP 115/87
[2019-09-18] MEDS ORDERED: PALIPERIDONE PALMITATE 156 MG/ML SYRINGE IM SCH (09:00)
== END 2019-08-24 19:55 | disposition home or self-care (01) | DRG 885 ==
LOC: EMS 08:44 → B2S 09:47
PROVIDERS: ADMIT Psychiatry & Neurology Psychiatry; ATTEND Psychiatry & Neurology Psychiatry
DX: F25.0 Schizoaffective disorder, bipolar type (principal); Z59.0 Homelessness; E78.5 Hyperlipidemia, unspecified; E11.9 Type 2 diabetes mellitus without complications; Z53.20 Procedure and treatment not carried out because of patient's decision for unspecified reasons; D64.9 Anemia, unspecified; Z87.440 Personal history of urinary (tract) infections; Z91.14 Patient's other noncompliance with medication regimen
CPT/HCPCS: 87081; G0480

== ENCOUNTER 2019-09-06 10:04 | Inpatient (IN) | payer MEDICAID ==
[~2019-09-06] VITALS: Ht 157.5 cm; Wt 66.7 kg
[~2019-09-06 10:04] MED LIST changes: -LAMO25TA66 PO; +MELA5TAB3 PO; -PALI117D IM; +PALI156D IM
[2019-09-06 10:44] VITALS: BP 116/68
[2019-09-06] MEDS: LORazepam 2 MG TABLET PO PRN ×2 (12:28→22:40)
[2019-09-06 12:58] VITALS: BP 113/71
[2019-09-06 18:51] VITALS: BP 110/64
[2019-09-06] MEDS ORDERED: ZOLPIDEM TARTRATE 5 MG TABLET PO PRN (20:15)
[2019-09-06] MEDS ORDERED: ChlorproMAZINE HCL 100 MG TABLET PO PRN (20:15)
[2019-09-06] MEDS: DIVALPROEX SODIUM 500 MG ER TABLET PO SCH (20:45)
[2019-09-07] MEDS ORDERED: PNEUMOCOCCAL VACCINE POLYVALENT 0.5 ML VIAL [PPSV23] IM ONE (05:15)
[2019-09-07 06:31] VITALS: BP 108/64
[2019-09-07] MEDS ORDERED: RisperiDONE 1 MG TABLET PO SCH (09:00)
[2019-09-07 09:38] VITALS: BP 122/73
[2019-09-07] MEDS ORDERED: HydrOXYzine PAMOATE 50 MG CAPSULE PO PRN (15:00)
[2019-09-07] MEDS ORDERED: GuaiFENesin/D-METHORPHAN [SUGAR-FREE] 200-20MG/10 ML SYRUP UDCUP PO PRN (15:00)
[2019-09-07] MEDS ORDERED: MAG HYDROX/AL HYDROX/SIMETH ES 30 ML SUSPENSION UDCUP PO PRN (15:00)
[2019-09-07] MEDS ORDERED: PALIPERIDONE 1.5 MG ER TABLET PO PRN (15:00)
[2019-09-07] MEDS ORDERED: ACETAMINOPHEN 325 MG TABLET PO PRN (15:00)
[2019-09-07] MEDS ORDERED: LOPERAMIDE HCL 2 MG CAPSULE PO PRN (15:00)
[2019-09-07] MEDS ORDERED: MAGNESIUM HYDROXIDE SUSPENSION 30 ML UDCUP PO PRN (15:00)
[2019-09-07] MEDS ORDERED: PROMETHAZINE HCL 25 MG TABLET PO PRN (15:00)
[2019-09-07 16:07] VITALS: BP 118/75
[2019-09-07] MEDS: THIAMINE 100 MG TABLET PO SCH (17:13)
[2019-09-07] MEDS: PALIPERIDONE 1.5 MG ER TABLET PO SCH (20:41)
[2019-09-07] MEDS: DIVALPROEX SODIUM 500 MG ER TABLET PO SCH (20:41)
[2019-09-07] MEDS: MELATONIN 5 MG TABLET PO SCH (20:44)
[2019-09-07] MEDS: LORazepam 2 MG TABLET PO PRN (21:39)
[2019-09-08 05:50] VITALS: BP 122/72
[2019-09-08 09:02] VITALS: BP 115/63
[2019-09-08] MEDS: THIAMINE 100 MG TABLET PO SCH ×2 (09:42→15:55)
[2019-09-08] MEDS: FOLIC ACID 1 MG TABLET PO SCH (09:42)
[2019-09-08] MEDS: MULTIVITAMINS WITH MINERALS, THERAPEUTIC TABLET PO SCH (09:43)
[2019-09-08 16:03] VITALS: BP 107/74
[2019-09-08] MEDS: MELATONIN 5 MG TABLET PO SCH (20:02)
[2019-09-08] MEDS: PALIPERIDONE 1.5 MG ER TABLET PO SCH (20:02)
[2019-09-08] MEDS: DIVALPROEX SODIUM 500 MG ER TABLET PO SCH (20:02)
[2019-09-09 00:09] VITALS: BP 103/62
[2019-09-09] MEDS: MULTIVITAMINS WITH MINERALS, THERAPEUTIC TABLET PO SCH (08:14)
[2019-09-09] MEDS: THIAMINE 100 MG TABLET PO SCH ×2 (08:14→16:52)
[2019-09-09] MEDS: FOLIC ACID 1 MG TABLET PO SCH (08:14)
[2019-09-09 10:00] VITALS: BP 130/76
[2019-09-09] MEDS: LORazepam 2 MG TABLET PO PRN (12:51)
[2019-09-09 16:00] VITALS: BP 99/53
[2019-09-09] MEDS ORDERED: QUEtiapine FUMARATE 100 MG TABLET PO PRN (16:00)
[2019-09-09] MEDS: MELATONIN 5 MG TABLET PO SCH (20:07)
[2019-09-09] MEDS: DIVALPROEX SODIUM 500 MG ER TABLET PO SCH (20:08)
[2019-09-09] MEDS ORDERED: QUEtiapine FUMARATE 200 MG TABLET PO SCH (21:00)
[2019-09-10 01:07] VITALS: BP 130/72
[2019-09-10] MEDS: MULTIVITAMINS WITH MINERALS, THERAPEUTIC TABLET PO SCH (08:56)
[2019-09-10] MEDS: FOLIC ACID 1 MG TABLET PO SCH (08:56)
[2019-09-10] MEDS: THIAMINE 100 MG TABLET PO SCH ×2 (08:56→16:32)
[2019-09-10 09:25] VITALS: BP 111/64
[2019-09-10] MEDS ORDERED: QUET200T29 PO (10:00)
[2019-09-10] MEDS ORDERED: DIVA-80 PO (10:00)
[2019-09-10] MEDS ORDERED: MELA5TAB3 PO (10:00)
[2019-09-10 16:06] VITALS: BP 114/73
== END 2019-09-10 18:10 | disposition home or self-care (01) | DRG 885 ==
LOC: B2S 11:07
PROVIDERS: ADMIT Psychiatry & Neurology Psychiatry; ATTEND Psychiatry & Neurology Psychiatry
DX: F25.0 Schizoaffective disorder, bipolar type (principal); E78.5 Hyperlipidemia, unspecified; G47.00 Insomnia, unspecified; Z91.19 Patient's noncompliance with other medical treatment and regimen
CPT/HCPCS: 87081; Z7610